=== PATIENT | female | born 1950 | race Two or more races ===

== ENCOUNTER 2018-08-26 22:55 | Emergency (ER) | payer OTHER ==
[~2018-08-26] VITALS: Ht 160 cm; Wt 69.4 kg
[~2018-08-26 22:55] MED LIST: CATAFLAM50 MG PO; CELEBREX100 MG PO; NORVASC10 MG; TRILEPTAL150 MG
[2018-08-26] MEDS ORDERED: NORVASC2.5 MG (23:10)
[2018-08-27] MEDS ORDERED: INTESTINEX680 M1 PO (00:49)
[2018-08-27] MEDS ORDERED: AMOX-CLAV 875-1 EACH PO (00:49)
[2018-08-27] MEDS ORDERED: ULTRAM50 MG PO (01:12)
[2018-08-27] MEDS ORDERED: DICLOFENAC POTA50 MG PO (01:12)
== END 2018-08-27 00:47 | disposition home or self-care (01) ==
LOC: ER 22:55
DX: S01.112A Laceration without foreign body of left eyelid and periocular area, initial encounter (principal); W18.39XA Other fall on same level, initial encounter; Y93.89 Activity, other specified; Y92.488 Other paved roadways as the place of occurrence of the external cause; Y99.8 Other external cause status

== ENCOUNTER → 2018-09-02 | Emergency (ER) | payer OTHER ==
[~2018-09-02] VITALS: Ht 170.2 cm; Wt 68.0 kg
[~2018-09-02] MED LIST changes: +AMOX-CLAV 875-1 EACH PO; +DICLOFENAC POTA50 MG PO; +INTESTINEX680 M1 PO; +NORVASC2.5 MG; +ULTRAM50 MG PO
== END | disposition home or self-care (01) ==
LOC: ER 10:16
DX: Z48.02 Encounter for removal of sutures (principal)

== ENCOUNTER → 2020-02-17 | Emergency (ER) | payer OTHER ==
[~2020-02-17] VITALS: Ht 170.2 cm; Wt 67.1 kg
[~2020-02-17] MED LIST changes: +PEPCID40 MG PO; +TIGAN; +ZOFRAN8 MG PO
== END | disposition home or self-care (01) ==
LOC: ER 18:06
DX: K52.89 Other specified noninfective gastroenteritis and colitis (principal); E87.1 Hypo-osmolality and hyponatremia

== ENCOUNTER 2021-02-15 12:18 | Emergency (ER) | payer OTHER ==
[~2021-02-15] VITALS: Ht 170.2 cm; Wt 63.5 kg
[2021-02-15] MEDS ORDERED: PERCOCET 5-3251 EACH PO (15:25)
== END 2021-02-15 19:59 | disposition home or self-care (01) ==
LOC: ER 12:18
DX: S42.252A Displaced fracture of greater tuberosity of left humerus, initial encounter for closed fracture (principal); M25.512 Pain in left shoulder; W01.198A Fall on same level from slipping, tripping and stumbling with subsequent striking against other object, initial encounter; Y93.01 Activity, walking, marching and hiking; Y92.018 Other place in single-family (private) house as the place of occurrence of the external cause; Y99.8 Other external cause status

== ENCOUNTER 2021-02-24 15:00 | Outpatient (CLI) | payer OTHER ==
[~2021-02-24 15:00] MED LIST changes: +PERCOCET 5-3251 EACH PO
== END 2021-02-24 15:22 | disposition home or self-care (01) ==
LOC: RAD 15:00
PROVIDERS: ATTEND Orthopaedic Surgery
DX: M25.512 Pain in left shoulder (principal)

== ENCOUNTER 2021-03-02 14:00 | Outpatient (CLI) | payer OTHER | END 2021-03-02 14:28 | disposition home or self-care (01) | LOC: RAD 14:00 | PROVIDERS: ATTEND Internal Medicine | DX: M25.512 Pain in left shoulder (principal) ==

== ENCOUNTER 2021-03-15 13:51 | Outpatient (CLI) | payer OTHER | END 2021-03-15 15:08 | disposition home or self-care (01) | LOC: MRI 13:51 | PROVIDERS: ATTEND Physical Medicine & Rehabilitation | DX: S19.89XA Other specified injuries of other specified part of neck, initial encounter (principal); M25.512 Pain in left shoulder | CPT/HCPCS: 73218 ==

== ENCOUNTER 2021-11-19 14:50 | Emergency (ER) | payer OTHER ==
[~2021-11-19] VITALS: Ht 170.2 cm; Wt 66.7 kg
[2021-11-19] MEDS ORDERED: TRILEPTAL150 MG PO (14:57)
== END 2021-11-19 19:22 | disposition home or self-care (01) ==
LOC: ER 14:50
DX: S01.81XA Laceration without foreign body of other part of head, initial encounter (principal); S61.216A Laceration without foreign body of right little finger without damage to nail, initial encounter; W18.39XA Other fall on same level, initial encounter; Y92.018 Other place in single-family (private) house as the place of occurrence of the external cause; S62.626A Displaced fracture of middle phalanx of right little finger, initial encounter for closed fracture

== ENCOUNTER 2021-11-26 11:47 | Emergency (ER) | payer OTHER ==
[~2021-11-26] VITALS: Ht 170.2 cm; Wt 65.3 kg
[~2021-11-26 11:47] MED LIST changes: +TRILEPTAL150 MG PO
== END 2021-11-26 13:17 | disposition home or self-care (01) ==
LOC: ER 11:47
DX: Z48.02 Encounter for removal of sutures (principal)

== ENCOUNTER 2021-11-28 11:59 | Emergency (ER) | payer OTHER ==
[~2021-11-28] VITALS: Ht 170.2 cm; Wt 64.9 kg
[2021-11-28] MEDS ORDERED: LEXAPRO20 MG PO (13:05)
== END 2021-11-28 15:05 | disposition home or self-care (01) ==
LOC: ER 11:59
DX: Z48.02 Encounter for removal of sutures (principal)